=== PATIENT | male | born 1970 | race Caucasian/White ===

== ENCOUNTER 2025-05-15 09:47 | Emergency (ER) | payer OTHER, SELFPAY ==
[2025-05-15 09:58] VITALS: BP 143/86; PULSE 78; RESP 14; TEMP 36.4; O2SAT 98; BMI 30.8
--- NOTE | 2025-05-15 10:15 | PC.NURSE ---
Pt has a known kidney stones right side
--- NOTE | 2025-05-15 10:25 | ED_ITS ---
HPI - Male Genitourinary General Chief complaint: Urogenital-Male Stated complaint: Kidney stone blocking rt ureter/cannot urinate Time Seen by Provider: 05/15/25 10:24 Source: patient, RN notes reviewed and old records reviewed Mode of arrival: Ambulatory Limitations: no limitations History of Present Illness HPI Narrative: 54-year-old male history of prior recurrent kidney stones patient has a known 6 mm stone at the right ureterovesicular junction has seen urology in [place] in his scheduled for lithotripsy in the next upcoming 2 weeks. Patient states today he noted he was having a lot of difficulty urinating and felt like his bladder was going to explode. He states it felt like he was not draining his bladder starting last night in the evening. He states he has been able to urinate 2 or 3 times overnight small amounts but did not feel like he is emptying his bladder. He denies fevers or chills. He noted a little bit increase of lower back pain which he states has a little bit lower than what he had for his kidney stone. He states his kidney stone pain had actually resolved. He notes that his bladder feels full but denies any other abdominal pain. He has not had any nausea or vomiting. He states no issues with bowel movements no constipation. No dysuria. Patient states he is on oxycodone PRN for pain, Cialis, propranolol and Flomax daily. Reports an allergy to Toradol causes heartburn. He states no prior surgeries. No alcohol or recreational drugs. Primary care is Pauline Salazar. Urology is in [place]. Related Data Previous Rx's ?Medication ?Instructions ?Recorded oxycodone 5 mg tablet 5 mg PO QID PRN pain #10 tab s 05/15/25 Allergies Allergy/AdvReac Type Severity Reaction Status Date / Time ketorolac (From Toradol) Allergy Mild Verified 05/15/25 10:02 Review of Systems Review of Systems ROS Unobtainable: All systems reviewed & are unremarkable except as noted in HPI and below Patient History Social History Smoking Status: Unknown if ever smoked Smoking Status: Unknown if ever smoked Exam Narrative Exam Narrative: GENERAL: Alert and oriented x three, male in mild distress HEENT: Head normocephalic, atraumatic, EOMI, pupils reactive, face symmetric, moist mucous membranes NECK: Supple, full range of motion CARDIOVASCULAR: Regular rate and rhythm without murmurs, rubs or gallops. RESPIRATORY: Breath sounds equal bilaterally, no wheezes rales or rhonchi. ABDOMEN: Soft, nontender. Nondistended. Normoactive bowel sounds all 4 quadrants. No guarding or rebound, rigidity, no mass : Patient has left flank tenderness, no right flank tenderness. EXTREMITIES: Normal range of motion, no clubbing or edema. Neurovascularly intact NEUROLOGICAL: Cranial nerves II through XII grossly intact. Moving all extremities SKIN: Warm, dry, no petechiae, no rashes or lesions. Initial Vital Signs Initial Vital Signs: Vital Signs Temperature 97.6 F 05/15/25 09:58 Pulse Rate 78 05/15/25 09:58 Respiratory Rate 14 05/15/25 09:58 Blood Pressure 143/86 H 05/15/25 09:58 Pulse Oximetry 98 05/15/25 09:58 Oxygen Delivery Method Room Air 05/15/25 09:58 Course Orders Ordered: Discontinued Medications Lidocaine HCl 7 ml/ Sodium (Chloride) 57 mls @ 342 mls/hr IV NOW ONE Stop: 05/15/25 10:36 Last Infusion: 05/15/25 11:12 Dose: Infused Documented By: Admin: 05/15/25 10:52 Dose: 342 mls/hr Documented By: DEBBIE Ondansetron HCl (Ondansetron 4 Mg/2 Ml Inj) 4 mg IV NOW PRN PRN Reason: Nausea And Vomiting Ondansetron HCl (Ondansetron 4 Mg Odt) 4 mg PO NOW PRN PRN Reason: Nausea And Vomiting Vital Signs Vital signs: Vital Signs - 8 hr 05/15/25 09:58 05/15/25 11:18 Temperature 97.6 F Pulse Rate 78 68 Respiratory Rate 14 16 Blood Pressure 143/86 H 134/83 Pulse Oximetry 98 96 Oxygen Delivery Method Room Air Room Air MDM - Male Genitourinary Lab Data 05/15/25 10:10 05/15/25 10:10 Labs: Lab Results 05/15/25 05/15/25 Range/Units 10:08 10:10 WBC 9.5 (4.5-11.0) X10^3/uL RBC 4.89 (4.5-5.9) X10^6/uL Hgb 14.8 (13.5-17.5) g/dL Hct 41.6 (41-53) % MCV 85.0 (80-100) fL MCH 30.3 (26-34) PG MCHC 35.6 (30-36) % RDW 13.5 (11.6-14.8) % Plt Count 229 (150-400) X10^3/uL Neut % (Auto) 68.4 (50-75) % Lymph % (Auto) 18.2 L (25-40) % [place] % (Auto) 9.8 (3-14) % Eos % (Auto) 3.1 (2-4) % Baso % (Auto) 0.5 (0-2) % Neut # (Auto) 6500 (3154-1357) /uL Lymph # (Auto) 1700 (1430-2237) /uL [place] # (Auto) 900 (0-900) /uL Eos # (Auto) 300 (0-450) /uL Baso # (Auto) 0 (0-100) /uL Sodium 140 (137-145) mmol/L Potassium 4.1 (3.4-5.1) mmol/L Chloride 106 (98-107) mmol/L Carbon Dioxide 26 (22-32) mmol/L BUN 16 (9-20) mg/dL Creatinine 0.78 (0.66-1.25) mg/dL Estimated GFR > 60 (>60) mL/min BUN/Creatinine Ratio 20.5 (6-22) Glucose 87 (70-99) mg/dL Calcium 8.8 (8.4-10.2) mg/dL Total Bilirubin 0.8 (0.2-1.3) mg/dL AST 27 (17-59) IU/L ALT 22 (<50) IU/L Alkaline Phosphatase 83 (38-126) U/L Total Protein 7.6 (6.3-8.2) g/dL Albumin 4.5 (3.5-5.0) g/dL Globulin 3.1 (1.7-4.1) g/dL Albumin/Globulin Ratio 1.5 (1.0-2.8) Lipase 140 (23-300) U/L Urine RBC 1-5/hpf (0-5/HPF) Urine WBC 1-5/hpf (0-5/HPF) Ur Squamous Epith Cells 1-5 /hpf (0-5/HPF) Urine Bacteria Occasional (0-1) (None) Ur Culture Indicated? Cult not indicated Vol Urine Centrifuged 10ml (spun) Urine Dip Bedside Urine Glucose Negative Bedside Urine Bilirubin - Negative Bedside Urine Ketone - Negative Urine Specific [place] 1.025 Bedside Urine Occult Blood +/- Bedside Urine pH 6.0 Bedside Urine Protein - Negative Bedside Urine Urobilinogen - Negative Bedside Urine Nitrite - Negative Bedside Urine Leukocytes - Negative Esterase MDM Narrative Medical decision making narrative: Labs normal white count, hemoglobin and platelets, chemistries are appropriate BUN and creatinine is normal. Point of care urine shows blood, microscopy shows 1-5 red cells 1-5 white cells 1-5 squamous 1 bacteria. Bladder scan shows 31-[address] KUB lumbar degenerative change, bilateral L5 pars defect with anterolisthesis of L5 on S1 bilateral severe foraminal narrowing L5-S1 with bilateral foraminal L5 nerve root impingement. 3 mm stone distal right ureter proximal to the ureterovesical junction nonobstructive. Bilateral rate and punctate renal parenchymal stones which are nonobstructive. Normal appendix. Bilateral fat containing inguinal hernia. Cholelithiasis. Patient had improvement with lidocaine. Patient notes he does have some lower back pain discussed pain medication he would like something nonnarcotic does not tolerate Toradol can try a lidocaine drip to see if this is helpful. I do not have access to his CT report but he is able to show me his office visit on his phone from his urologist showing a 6 mm stone at the ureterovesicular junction from his most recent visit. Discussed with the patient has a normal renal function pain is fairly well controlled with oral medications, his urine does not appear to be infected today he noted a 6 mm stone so this is possibly a new stone as he states his symptoms had improved over time or there maybe a slight discrepancy in size but has follow up with Urology for ureterolithiasis upcoming. Discussed with the patient he feels comfortable at this time he feels comfortable plan to follow up with a his urologist. Discussed return precautions. He is on Flomax daily. Discharge Plan Departure Patient Disposition: Home Clinical Impression: Kidney stone on right side Instructions: DI for Kidney Stones Activity Restrictions/Additional Instructions: Your imaging shows a 3 mm stone in the distal right ureter just proximal or next to the ureterovesicular junction, there was no signs of hydro or obstruction, you have multiple small stones within the kidneys themselves on both sides. You also had bilateral fat containing inguinal hernias, gallstones are noted as well as degenerative changes to the lower lumbar spine. Continue with your home medications including your Flomax. Prescription sent to hometown in [facility] Please return if fevers, new abdominal back or flank pain, any difficulty or inability urinate, persistent vomiting, black or bloody stools or other new or concerning changes. Prescriptions: New oxycodone 5 mg tablet 5 mg PO QID PRN (Reason: pain) Qty: 10 0RF Referrals: Pauline Salazar ARNP [Primary Care Provider, Family Practice] Stand Alone Forms: Patient Portal/API
--- NOTE | 2025-05-15 10:34 | DI.CT.S_ITS ---
PROCEDURE: CT KIDNEY URETER BLADDER (KUB) INDICATIONS: known R stone ureterovesicular junction, difficulty urinatin TECHNIQUE: Axial sections were acquired from the lung bases to the pubic symphysis. Coronal and sagittal reformats were performed. For radiation dose reduction, the following was used: automated exposure control, adjustment of mA and/or kV according to patient size. COMPARISON: None. FINDINGS: Image quality: Diagnostic. Lower Chest: No significant findings. URINARY: Right Kidney: Punctate nonobstructing 3 mm upper pole stone. No hydronephrosis. Right Ureter: No hydroureter. However, there is a 3 mm stone just proximal to the ureterovesical junction. Reference axial image 126 of series 2. Left Kidney: Punctate 2 mm nonobstructing stones. No hydronephrosis. Left Ureter: No hydroureter. No ureteral stone. Bladder: Normal wall thickness. No stones. ABDOMEN: Liver: No contour-deforming solid mass. Gallbladder: Numerous gas containing stones. Gallbladder is contracted. No gallbladder wall thickening. Biliary ducts: No biliary dilation. Pancreas: No ductal dilation. Spleen: Size is within normal limits. Adrenal Glands: No adrenal nodules. Stomach and Bowel: Normal colonic caliber, without significant wall thickening. Normal appendix. Peritoneum: No abnormal intraperitoneal fluid. No free air. Ventral Wall: No hernia. Abdominal Nodes: No enlarged retroperitoneal or mesenteric lymph nodes. Vessels: Aorta and inferior vena cava are normal in size. PELVIS: Pelvic Organs: Unremarkable. Pelvic Nodes: Unremarkable. Miscellaneous: Bilateral fat containing inguinal hernias are seen. Bones: Lumbar degenerative change. Bilateral L5 pars defects with anterolisthesis of L5 on S1 and bilateral severe foraminal narrowing at L5-S1 with bilateral foraminal L5 nerve root impingement. IMPRESSION: 1. There is a 3 mm stone in the distal right ureter which is just proximal to the ureterovesical junction and is nonobstructive. 2. Bilateral punctate renal parenchymal stones which are nonobstructive. 3. Normal appendix. 4. Bilateral fat containing inguinal hernias. 5. Cholelithiasis. 6. Bilateral L5 pars defects with anterolisthesis of L5 on S1 and bilateral severe foraminal narrowing at L5-S1 with bilateral foraminal L5 nerve root impingement. Dictated by: Kadeem Phoenix M.D. on 05/15/2025 at 11:30 Approved by: Kadeem Phoenix M.D. on 05/15/2025 at 11:34
[2025-05-15 10:36] LABS: Alanine Aminotransferase 22 IU/L (<50); Albumin 4.5 g/dL (3.5-5.0); Albumin Globulin Ratio 1.5 (1.0-2.8); Alkaline Phosphatase 83 U/L (38-126); Blood Urea Nitrogen 16 mg/dL (9-20); Calcium 8.8 mg/dL (8.4-10.2); Carbon Dioxide 26 mmol/L (22-32); Chloride 106 mmol/L (98-107); Estimated Glomerular Filt Rate > 60 mL/min (>60); Globulin 3.1 g/dL (1.7-4.1); Glucose 87 mg/dL (70-99); HEMOLYSIS < 15 (0-50); Lipase 140 U/L (23-300); Potassium 4.1 mmol/L (3.4-5.1); Sodium 140 mmol/L (137-145); Total Protein 7.6 g/dL (6.3-8.2)
[2025-05-15 10:43] LABS: Add Manual Diff / Slide Review NO; Hematocrit 41.6 % (41-53); Hemoglobin 14.8 g/dL (13.5-17.5); Lymphocytes Absolute Auto 1700 /uL (1100-4500); Mean Corpuscular HGB Conc 35.6 % (30-36); Mean Corpuscular Hemoglobin 30.3 PG (26-34); Mean Corpuscular Volume 85.0 fL (80-100); Platelet Count 229 X10^3/uL (150-400)
[2025-05-15 10:50] LABS: Culture Indicated Urine Cult Not Indicated
[2025-05-15] MEDS: LIDOCAINE 2% (PF) 7 ML in SODIUM CHLORIDE 0.9% 50 ML 342 ML IV (10:52)
[2025-05-15 11:18] VITALS: BP 134/83; PULSE 68; RESP 16; O2SAT 96
[2025-05-15 12:29] VITALS: BP 160/101; PULSE 70; RESP 18; TEMP 36.6; O2SAT 99
== END 2025-05-15 12:35 | disposition home or self-care (01) ==
PROVIDERS: Emergency Provider Emergency Medicine; PCP Nurse Practitioner Family
DX: N20.0 Calculus of kidney (principal); M54.50 Low back pain, unspecified
CPT/HCPCS: 36415; 51798; 74176; 80053; 81003; 81015; 83690; 85025; 96365; 99284